=== PATIENT | female | born 1955 | race Asian ===

== ENCOUNTER 2016-12-04 05:45 | Day surgery (SDC) | payer OTHER ==
[~2016-12-04] VITALS: Ht 152.4 cm; Wt 60.9 kg
[~2016-12-04 05:45] MED LIST: ATOR10TA84 PO; CALC-52 PO; LEVO75TA PO
[2016-12-04] MEDS ORDERED: RINGERS SOLUTION,LACTATED 500 ML IV ONE ×2 (06:05→06:30)
[2016-12-04] MEDS ORDERED: TETRACAINE HCL 0.5% 2 ML OPHTHALMIC SOLUTION ONE (06:06)
[2016-12-04] MEDS ORDERED: DICLOFENAC SODIUM 0.1% 2.5 ML OPHTHALMIC SOLUTION ONE (06:06)
[2016-12-04] MEDS ORDERED: BESIFLOXACIN HCL 0.6% 5 ML OPHTHALMIC SUSPENSION ONE (06:06)
[2016-12-04] MEDS ORDERED: CYCLOPENTOLATE HCL 2% 2 ML OPHTHALMIC SOLUTION ONE (06:06)
[2016-12-04] MEDS ORDERED: PHENYLEPHRINE HCL 2.5% 2 ML OPHTHALMIC SOLUTION ONE (06:06)
[2016-12-04] MEDS: TETRACAINE HCL 0.5% 2 ML OPHTHALMIC SOLUTION OS SCH ×3 (06:35→06:50)
[2016-12-04] MEDS: CYCLOPENTOLATE HCL 2% 2 ML OPHTHALMIC SOLUTION OS SCH ×3 (06:35→06:50)
[2016-12-04] MEDS: PHENYLEPHRINE HCL 2.5% 2 ML OPHTHALMIC SOLUTION OS SCH ×3 (06:35→06:50)
[2016-12-04] MEDS: BESIFLOXACIN HCL 0.6% 5 ML OPHTHALMIC SUSPENSION OS SCH ×3 (06:36→06:50)
[2016-12-04] MEDS: DICLOFENAC SODIUM 0.1% 2.5 ML OPHTHALMIC SOLUTION OS SCH ×3 (06:36→06:50)
[2016-12-04] MEDS ORDERED: ACETAMINOPHEN 325 MG TABLET PO PRN (07:00)
[2016-12-04] MEDS ORDERED: MIDAZOLAM HCL 2 MG/2 ML VIAL IVP ONE (12:00)
== END 2016-12-04 09:35 | disposition home or self-care (01) ==
LOC: SURGERY 05:45
PROVIDERS: ATTEND Ophthalmology
DX: H25.12 Age-related nuclear cataract, left eye (principal); E78.00 Pure hypercholesterolemia, unspecified; E03.9 Hypothyroidism, unspecified; Z90.49 Acquired absence of other specified parts of digestive tract; Z98.890 Other specified postprocedural states
CPT/HCPCS: 66984; 93005; C1780; J2250; J7120

== ENCOUNTER 2017-01-29 06:21 | Day surgery (SDC) | payer OTHER ==
[~2017-01-29] VITALS: Ht 152.4 cm; Wt 61.8 kg
[~2017-01-29 06:21] MED LIST changes: +BESIFLOXACIN HCL 0.6% 5 ML OPHTHALMIC SUSPENSION ONE; +CYCLOPENTOLATE HCL 2% 2 ML OPHTHALMIC SOLUTION ONE; +DICLOFENAC SODIUM 0.1% 2.5 ML OPHTHALMIC SOLUTION ONE; +PHENYLEPHRINE HCL 2.5% 2 ML OPHTHALMIC SOLUTION ONE; +RINGERS SOLUTION,LACTATED 500 ML IV ONE; +TETRACAINE HCL 0.5% 2 ML OPHTHALMIC SOLUTION ONE
[2017-01-29] MEDS ORDERED: AZEL6DRO5 OU (06:36)
[2017-01-29] MEDS ORDERED: MIDO2.5 PO (06:36)
[2017-01-29] MEDS: TETRACAINE HCL 0.5% 2 ML OPHTHALMIC SOLUTION OD SCH ×3 (06:57→07:10)
[2017-01-29] MEDS: BESIFLOXACIN HCL 0.6% 5 ML OPHTHALMIC SUSPENSION OD SCH ×3 (06:57→07:10)
[2017-01-29] MEDS: PHENYLEPHRINE HCL 2.5% 2 ML OPHTHALMIC SOLUTION OD SCH ×3 (06:57→07:10)
[2017-01-29] MEDS: CYCLOPENTOLATE HCL 2% 2 ML OPHTHALMIC SOLUTION OD SCH ×3 (06:57→07:10)
[2017-01-29] MEDS: DICLOFENAC SODIUM 0.1% 2.5 ML OPHTHALMIC SOLUTION OD SCH ×3 (06:57→07:10)
[2017-01-29] MEDS ORDERED: ACETAMINOPHEN 325 MG TABLET PO PRN (07:30)
[2017-01-29] MEDS ORDERED: FentaNYL CITRATE-PF 100 MCG/2 ML VIAL IVP ONE (12:00)
[2017-01-29] MEDS ORDERED: MIDAZOLAM HCL 2 MG/2 ML VIAL IVP ONE (12:00)
[2017-01-29] MEDS ORDERED: HYALURONATE SODIUM 12 MG/ML 0.8 ML SYRINGE IO ONE (15:10)
[2017-01-29] MEDS ORDERED: TETRACAINE HCL 0.5% 2 ML OPHTHALMIC SOLUTION OS ONE (15:10)
[2017-01-29] MEDS ORDERED: POVIDONE-IODINE 10% 15 ML SOLUTION UD TP ONE (15:10)
[2017-01-29] MEDS ORDERED: HYALURONATE SOD/CHONDROITIN SOD 0.5 ML VIAL IO ONE (15:10)
[2017-01-29] MEDS ORDERED: PrednisoLONE ACETATE 1% 5 ML OPHTHALMIC SUSPENSION OS ONE (15:10)
[2017-01-29] MEDS ORDERED: EPINEPHrine 1:1,000 [1 MG/ML] AMP IM ONE (15:10)
[2017-01-29] MEDS ORDERED: LIDOCAINE HCL/PF 1% 2 ML VIAL IM ONE (15:10)
[2017-01-29] MEDS ORDERED: NEOMYCIN/POLYMYXIN B/DEXAMETH 3.5 GM OPHTHALMIC OINTMENT OS ONE (15:10)
== END 2017-01-29 08:50 | disposition home or self-care (01) ==
LOC: SDS 06:21
PROVIDERS: ATTEND Ophthalmology
DX: H25.11 Age-related nuclear cataract, right eye (principal); F17.210 Nicotine dependence, cigarettes, uncomplicated; E78.00 Pure hypercholesterolemia, unspecified
CPT/HCPCS: 66984; C1780; J0171; J2250; J3010; J3490 ×2; J7120; 99152; 99153